=== PATIENT | female | born 1995 | race Caucasian/White ===

== ENCOUNTER → 2021-08-09 14:17 | Outpatient (BNVA) | payer MEDICAID, SELFPAY | PROVIDERS: Family Provider Nurse Practitioner; PCP Nurse Practitioner; Visit Provider Nurse Practitioner Family | DX: J06.9 Acute upper respiratory infection, unspecified (principal); Z20.822 Contact with and (suspected) exposure to COVID-19 | CPT/HCPCS: 87635 ==

== ENCOUNTER → 2021-11-02 13:51 | Outpatient (BNVA) | payer MEDICAID, SELFPAY | PROVIDERS: Family Provider Nurse Practitioner; PCP Nurse Practitioner; Visit Provider Registered Nurse Neonatal Intensive Care | DX: S59.909A Unspecified injury of unspecified elbow, initial encounter (principal); W10.9XXA Fall (on) (from) unspecified stairs and steps, initial encounter | CPT/HCPCS: 73080 ==

== ENCOUNTER 2023-05-18 21:12 | Emergency (ER) | payer MEDICAID, SELFPAY ==
[2023-05-18 21:22] VITALS: BP 131/81; PULSE 89; RESP 14; TEMP 37.2; O2SAT 100
--- NOTE | 2023-05-18 22:19 | XRR_ITS ---
PROCEDURE INFORMATION: Exam: XR Chest Exam date and time: 05/18/2023 10:36 PM Age: 27 years old Clinical indication: Shortness of breath; Additional info: Weakness TECHNIQUE: Imaging protocol: Radiologic exam of the chest. Views: 1 view. COMPARISON: CT angio chest PE protcl [id number] 02/20/2018 12:05 PM FINDINGS: Lungs: Unremarkable. No consolidation. Pleural spaces: Unremarkable. No pleural effusion. No pneumothorax. Heart/Mediastinum: Unremarkable. No cardiomegaly. Bones/joints: Unremarkable. XR/XR chest 1V portable [id number] IMPRESSION: No acute findings.
--- NOTE | 2023-05-18 22:19 | CTR_ITS ---
PROCEDURE INFORMATION: Exam: CT Head Without Contrast Exam date and time: 05/18/2023 10:32 PM Age: 27 years old Clinical indication: Visual disturbance and other: General weakness; Patient HX: General weakness with RT eye vision change; Additional info: Weakness vision changes TECHNIQUE: Imaging protocol: Computed tomography of the head without contrast. Radiation optimization: All CT scans at this facility use at least one of these dose optimization techniques: automated exposure control; mA and/or kV adjustment per patient size (includes targeted exams where dose is matched to clinical indication); or iterative reconstruction. REPORTING DATA: Count of CT and Cardiac NM exams in prior 12 months: This patient has received 0 known CTs and 0 known cardiac nuclear medicine studies in the 12 months prior to the current study. COMPARISON: No relevant prior studies available. RADIATION DOSE METRICS: Total DLP (mGy-cm): 1107.28 FINDINGS: Brain: Normal. No hemorrhage. Unremarkable white matter. No mass effect. Cerebral ventricles: No ventriculomegaly. Paranasal sinuses: Mild bilateral ethmoid sinus disease. Mastoid air cells: Visualized mastoid air cells are well aerated. Bones/joints: Unremarkable. No acute fracture. Soft tissues: Unremarkable. CT/CT head wo con* [id number] IMPRESSION: 1. Mild bilateral ethmoid sinus disease. 2. No acute intracranial findings.
[2023-05-18 22:39] LABS: Basophils # 0.1 10^3/uL (0.0-0.1); Basophils % 0.8 %; Eosinophils # 0.2 10^3/uL (0.0-0.8); Eosinophils % 1.9 %; Hematocrit 36.1 % (37.0-47.0); Lymphocytes # 2.4 10^3/uL (0.8-4.8); Mean Corpuscular HGB Conc 30.5 g/dL (30.0-36.0); Mean Corpuscular Hemoglobin 23.3 pg (28.0-34.0); Mean Corpuscular Volume 76.3 fl (81-99); Mean Platelet Volume 10.3 fL (7.4-10.4); Monocytes # 0.6 10^3/uL (0.2-0.9); Monocytes % 5.8 %; Neutrophils # 7.27 10^3/uL (1.8-7.7); Neutrophils % 68.3 %; Nucleated Red Blood Cells % 0 %; Platelet Count 341 10^3/cmm (130-400); Red Blood Count 4.73 10^6/uL (4.1-5.3); Red Cell Distribution Width 16.4 % (12.1-15.1); White Blood Count 10.6 10^3/uL (4.0-10.0)
[2023-05-18] MEDS: sodium chloride 0.9% 1,000 ML 999 ML IV (22:47)
[2023-05-18 22:48] LABS: HCG, Serum Qual Negative (Negative)
[2023-05-18 22:56] LABS: Alanine Aminotransferase 13 U/L (0-33); Albumin Level 4.6 g/dL (3.5-5.2); Alkaline Phosphatase 62 U/L (35-105); Anion Gap 15.5 (5-19); Aspartate Amino Transferase 15 U/L (0-32); Blood Urea Nitrogen 9 mg/dL (6-20); Carbon Dioxide 23 mmol/L (22-29); Chloride 103 mmol/L (98-107); Creatine Phosphokinase 76 U/L (26-192); Globulin 2.9 g/dL (1.3-4.6); Glomerular Filtration Rate 100.4 mL/min (90-130); Glucose 81 mg/dL (65-115); Osmolality Calculated 284 mOsm/kg (285-295); Potassium 3.5 mmol/L (3.5-5.1); Sodium 138 mmol/L (136-145); Total Bilirubin 0.2 mg/dL (0.15-1.2); Total Protein 7.5 g/dL (6.6-8.7)
[2023-05-18 23:08] LABS: Alcohol Level < 10 mg/dL (0-10)
[2023-05-18 23:42] VITALS: BP 113/73; PULSE 90; RESP 16; O2SAT 100
--- NOTE | 2023-05-19 15:12 | W.ED.GENADLT ---
HPI - General Adult General: Chief complaint: General Medical Stated complaint: Possible Blood Clots Time Seen by Provider: 05/18/23 22:14 Source: patient and family History of Present Illness: 27 year old female who had been floating the river earlier today. On the way home, she states that she began to get very bright spots in her vision, mainly on the right side, then her vision became blurry. She became weak in her arms and legs bilaterally. She had some balance problems. This lasted for about 30 minutes or so she says. Symptoms went away on their own. She is essentially asymptomatic now. She does feel tired and worn out, more than usual. She's never had symptoms like this prior. Onset (ago): hour(s) Location: head Pain Consistency: now resolved Relieving factors: other Exacerbating factors: other Associated symptoms: Reports nausea and weakness; Deny chest pain, confusion, cough, dyspnea, fevers/chills, rash, seizures or vomiting Review of Systems Const: Denies: fever(s), chills or body aches Eyes: Reports: change in vision and blurry vision Card: Denies: chest pain Resp: Denies: dyspnea GI: Reports: nausea; Denies: vomiting : Denies: difficulty voiding Skin/Breast: Denies: rash Neuro: Denies: confusion PFSH ED PFSH: Social History Smoking and tobacco status: never smoked Physical Exam Const: COMMON NORMALS: no acute distress GENERAL APPEARANCE: cooperative; not ill appearing and not frail appearing HENMT: COMMON NORMALS: normocephalic, atraumatic and Normal external nose present HEAD & SCALP: normocephalic and atraumatic FACE & SINUS: normal facial exam and face symmetric NOSE: Normal external nose present Eye: COMMON NORMALS: Equal, round and reactive pupils present and EOMs intact bilaterally PUPIL: Yes Equal, round and reactive pupils present Neck/C-Spine: GENERAL: Yes trachea midline Chest: CHEST: Yes Symmetrical chest wall rise Resp: COMMON NORMALS: normal respiratory effort, No retractions, No use of accessory muscles and clear to auscultation bilaterally AUSCULTATION: clear to auscultation bilaterally Cardio: COMMON NORMALS: regular rate and regular rhythm RATE: regular rate RHYTHM: regular rhythm GI: COMMON NORMALS: Normal to inspection, nondistended, normoactive bowel sounds present Extremity: COMMON NORMALS: no pedal edema Neuro: AMANDA COMA SCALE: document GCS findings Amanda coma scale eye opening: Spontaneous Amanda coma scale verbal response: Orientated Amanda coma scale motor response: Obey commands [place] coma scale total score: 15 SENSORY EXAM: Yes extremities (intact) Psych: COMMON NORMALS: speech normal SPEECH: Yes normal speech Skin: COMMON NORMALS: no rashes or lesions noted GENERAL SKIN EXAM: no rashes or lesions noted Course Vital Signs: Vital signs: Vital Signs Temperature 98.9 F 05/18/23 21:22 Pulse Rate 90 05/18/23 23:42 Respiratory Rate 16 05/18/23 23:42 Blood Pressure 113/73 05/18/23 23:42 Pulse Oximetry 100 05/18/23 23:42 Oxygen Delivery Me thod Room Air 05/18/23 23:42 MDM - General Adult Medical Decision Making Symptoms are essentially resolved. Her NIH scale is zero. Symptoms do not match particular vascular zone in terms of stroke or Tia. She does feel improved after a fluid bolus. CT shows some mild bilateral ethmoid sinus disease not likely to be a source of her symptoms. It is otherwise normal. CRP is 3. She is not . Other laboratory is not remarkable. Should be discharged home. She knows to return for any return of her symptoms. Outpatient follow up. Lab Data 05/18/23 22:30 05/18/23 22:30 Radiology Impressions Chest X-Ray 05/18/23 22:19 IMPRESSION: No acute findings. Head CT 05/18/23 22:19 IMPRESSION: 1. Mild bilateral ethmoid sinus disease. 2. No acute intracranial findings. Laboratory Results WBC 10.6 10^3/uL (4.0-10.0) H 05/18/23 22:30 RBC 4.73 10^6/uL (4.1-5.3) 05/18/23 22:30 Hgb 11.0 g/dL (11.5-15.3) L 05/18/23 22:30 Hct 36.1 % (37.0-47.0) L 05/18/23 22:30 MCV 76.3 fl (81-99) L 05/18/23 22:30 MCH 23.3 pg (28.0-34.0) L 05/18/23 22:30 MCHC 30.5 g/dL (30.0-36.0) 05/18/23 22: RDW 16.4 % (12.1-15.1) H 05/18/23 22: Plt Count 341 10^3/cmm (130-400) 05/18/23 22:30 MPV 10.3 fL (7.4-10.4) 05/18/23 22: Neut % (Auto) 68.3 % 05/18/23 22: Lymph % (Auto) 23.0 % 05/18/23 22: [place] % (Auto) 5.8 % 05/18/23 22: Eos % (Auto) 1.9 % 05/18/23 22: Baso % (Auto) 0.8 % 05/18/23: Neut # (Auto) 7.27 10^3/uL (1.8-7.7) 05/18/23 22: Lymph # (Auto) 2.4 10^3/uL (0.8-4.8) 05/18/23 22: [place] # (Auto) 0.6 10^3/uL (0.2-0.9) 05/18/23 22: Eos # (Auto) 0.2 10^3/uL (0.0-0.8) 05/18/23 22: Baso # (Auto) 0.1 10^3/uL (0.0-0.1) 05/18/23: Nucleated RBC % (auto) 0 % 05/18/23: Nucleated RBCs # 0.0 /100WBC 05/18/23 22: Sodium 138 mmol/L (136-145) 05/18/23 22: Potassium 3.5 mmol/L (3.5-5.1) 05/18/23: Chloride 103 mmol/L (98-107) 05/18/23 22: Carbon Dioxide 23 mmol/L (22-29) 05/18/23 22: Anion Gap 15.5 (5-19) 05/18/23 22: BUN 9 mg/dL (6-20) 05/18/23 22: Creatinine 0.7 mg/dL (0.5-0.9) 05/18/23 22:30 GFR Calculation 100.4 mL/min (90-130) 05/18/23 22:30 Glucose 81 mg/dL (65-115) 05/18/23 22:30 Calculated Osmolality 284 mOsm/kg (285-295) L 05/18/23 22:30 Calcium 9.0 mg/dL (8.5-10.5) 05/18/23 22:30 Total Bilirubin 0.2 mg/dL (0.15-1.2) 05/18/23 22:30 AST 15 U/L (0-32) 05/18/23 22:30 ALT 13 U/L (0-33) 05/18/23 22:30 Alkaline Phosphatase 62 U/L (35-105) 05/18/23 22:30 Creatine Kinase 76 U/L (26-192) 05/18/23 22:30 C-Reactive Protein 3.0 mg/L (0.0-4.9) 05/18/23 22:30 Total Protein 7.5 g/dL (6.6-8.7) 05/18/23 22:30 Albumin 4.6 g/dL (3.5-5.2) 05/18/23 22:30 Globulin 2.9 g/dL (1.3-4.6) 05/18/23 22:30 HCG, Qual Negative (Negative) 05/18/23 22: Ethyl Alcohol < 10 mg/dL (0-10) 05/18/23 22:30 Discharge Plan Discharge Patient Disposition: Home Clinical Impression: Weakness, Change in vision Condition: Stable Prescriptions: No Action No Known Home Medications Discharge Orders: Discharge ED (Routine); Ordered 05/18/23 Ordered By: Trung Durham Referrals: Sherry Muhammad, BUILDING ESTIMATOR[facility] [Primary Care Provider] - 1-3 days Patient Instructions: Weakness (ED), Blurred Vision (ED) Activity Restrictions/Additional Instructions: Return for any return of symptoms including weakness, change in vision, mental status changes, any other concerns. See your doctor next week. Stay in a cool environment for the next 48 hours if possible. Hydrate. Coding Level of Care Code ED Laboratory Scientist for [facility] NIH stroke score NIHSS Level Of Consciousness - 1a: 0 Level Of Consciousness Questions - 1b: Both Correct Level Of Consciousness Commands - 1c: Both Correct Best Gaze - 2: Normal Visual Kiran - 3: No Visual Loss Facial Palsy - 4: Normal Motor Arm Right - 5: No Drift Motor Arm Left - 5: No Drift Motor Leg Right - 6: No Drift Motor Leg Left - 6: No Drift Limb Ataxia - 7: Absent Sensory - 8: Normal Best Language - 9: No Aphasia Dysarthia - 10: Normal Extinction And Inattention - 11: 0 Score Total Score: 0
== END 2023-05-18 23:56 | disposition home or self-care (01) ==
PROVIDERS: Emergency Provider Emergency Medicine; PCP Nurse Practitioner
DX: H53.9 Unspecified visual disturbance (principal); R53.1 Weakness
CPT/HCPCS: 70450; 71045; 80053; 80307; 82550; 84703; 85025; 86140; 96360; 99285; J7030

== ENCOUNTER → 2023-06-03 14:33 | Outpatient (BNVA) | payer SELFPAY | PROVIDERS: PCP Nurse Practitioner; Visit Provider Nurse Practitioner Family | DX: R00.0 Tachycardia, unspecified (principal); R55 Syncope and collapse | CPT/HCPCS: 80053; 80061; 84443; 85025 ==

== ENCOUNTER → 2023-06-06 09:11 | Outpatient (BNVA) | payer MEDICAID, SELFPAY | PROVIDERS: PCP Nurse Practitioner; Visit Provider Nurse Practitioner Family | DX: D64.9 Anemia, unspecified (principal) | CPT/HCPCS: 82728; 83550 ==

== ENCOUNTER → 2023-06-27 08:41 | Outpatient (BNVA) | payer SELFPAY | PROVIDERS: PCP Nurse Practitioner; Visit Provider Internal Medicine Cardiovascular Disease | DX: R00.0 Tachycardia, unspecified (principal); R55 Syncope and collapse | CPT/HCPCS: 93242 ==

== ENCOUNTER → 2023-07-09 14:32 | Outpatient (BNVA) | payer MEDICAID, SELFPAY | PROVIDERS: PCP Nurse Practitioner; Visit Provider Internal Medicine Cardiovascular Disease | DX: R07.9 Chest pain, unspecified (principal); R55 Syncope and collapse; R00.0 Tachycardia, unspecified; I10 Essential (primary) hypertension; E78.5 Hyperlipidemia, unspecified; D68.51 Activated protein C resistance; Z86.711 Personal history of pulmonary embolism; R00.2 Palpitations | CPT/HCPCS: 93005; 99204 ==

== ENCOUNTER → 2023-07-23 15:59 | Outpatient (BNVA) | payer MEDICAID, SELFPAY | PROVIDERS: PCP Nurse Practitioner; Visit Provider Nurse Practitioner Family | DX: D50.9 Iron deficiency anemia, unspecified (principal) | CPT/HCPCS: 83540; 85025 ==